=== PATIENT | female | born 1990 | race African-American/Black ===

== ENCOUNTER 2022-01-01 15:12 | Emergency (ER) | payer BC, OTHER ==
[~2022-01-01] VITALS: Ht 157.5 cm; Wt 55.0 kg
[~2022-01-01 15:12] MED LIST: DOXY1TAB3
[2022-01-01] MEDS ORDERED: SODIUM CHLORIDE 0.9% 1,000 ML IV ONE (16:30)
[2022-01-01] MEDS ORDERED: ONDANSETRON HCL 4MG/2ML INJ IV ONE (16:30)
[2022-01-01 16:45] LABS: CLARITY URINE CLOUDY (CLEAR); COLOR URINE DARK YELLOW (YELLOW); KETONES URINE 4+ (NEGATIVE); LEUKOCYTE ESTERASE URINE 2+ (NEGATIVE); NITRITE URINE NEGATIVE (NEGATIVE); OCCULT BLOOD URINE NEGATIVE (NEGATIVE); PROTEIN URINE 1+ (NEGATIVE); SPECIFIC GRAVITY URINE 1.019 (1.005-1.030)
[2022-01-01] MEDS ORDERED: CEFAZOLIN 1000MG PREMIX 50 ML IV ONE (17:45)
[2022-01-01 18:13] LABS: BASOPHILS % 0.3 % (0.0-2.0); EOSINOPHILS % 0.5 % (0.0-5.0); HEMATOCRIT. 35.2 % (36.0-48.0); HEMOGLOBIN. 12.2 g/dL (12.0-16.0); LYMPHOCYTES % 27.3 % (20.0-50.0); MEAN CORPUSCULAR HEMOGLOBIN 35.2 pg (28.0-32.0); MEAN CORPUSCULAR VOLUME 101.7 fL (81.0-99.0); MEAN PLATELET VOLUME 7.9 fl (7.4-10.4); MONOCYTES % 6.3 % (2.0-8.0); NEUTROPHILS % 65.6 % (40.0-76.0); PLATELET 136 x1000/uL (130-400); RED BLOOD CELL COUNT 3.46 mill/uL (4.2-5.4); RED CELL DISTRIBUTION WIDTH 15.1 % (11.6-14.6)
[2022-01-01 18:29] LABS: CHLORIDE 102 mEq/L (98-107)
[2022-01-01] MEDS ORDERED: KCL 20MEQ/100ML PREMIX 100 ML IV ONE (18:45)
[2022-01-01 18:52] LABS: B-HCG QUANTITATIVE 114515 mIU/mL (<3)
[2022-01-01] MEDS ORDERED: CEFAZOLIN 1000MG PREMIX 50 ML IV NR (19:15)
[2022-01-01] MEDS ORDERED: ONDANSETRON HCL 4MG/2ML INJ IV NR (19:15)
[2022-01-01 21:39] VITALS: BP 146/98
== END 2022-01-01 22:08 | disposition short-term general hospital (02) ==
LOC: ER 15:12
DX: O21.1 Hyperemesis gravidarum with metabolic disturbance (principal); O23.41 Unspecified infection of urinary tract in pregnancy, first trimester; N39.0 Urinary tract infection, site not specified; O26.891 Other specified pregnancy related conditions, first trimester; R55 Syncope and collapse; Z3A.10 10 weeks gestation of pregnancy; Z20.822 Contact with and (suspected) exposure to COVID-19
CPT/HCPCS: 36415; 76801; 76817; 80053; 81003; 83735; 84702; 85025; 86850; 86900; 86901; 87086; 87426; 93005; 96361; 96365; 96375; 99285; J0690; J2405; J3480; J7030

== ENCOUNTER 2023-03-13 10:00 | Observation (INO) | payer MEDICAID ==
[~2023-03-13] VITALS: Ht 157.5 cm; Wt 76.2 kg
[2023-03-13] MEDS ORDERED: PNV1TABL50 PO (10:25)
[2023-03-13 10:58] LABS: CLARITY URINE CLOUDY (CLEAR); COLOR URINE DARK YELLOW (YELLOW); KETONES URINE NEGATIVE (NEGATIVE); LEUKOCYTE ESTERASE URINE 3+ (NEGATIVE); NITRITE URINE NEGATIVE (NEGATIVE); OCCULT BLOOD URINE NEGATIVE (NEGATIVE); PH URINE 6.5 (4.5-8.0); PROTEIN URINE NEGATIVE (NEGATIVE); SPECIFIC GRAVITY URINE 1.022 (1.005-1.030)
[2023-03-13] MEDS ORDERED: CEFAZOLIN 2,000 MG in DEXT 5% WATER 100 ML IV SCH (12:30)
== END 2023-03-13 13:27 | disposition home or self-care (01) ==
LOC: 8 EST A/PP 10:00
PROVIDERS: ADMIT Obstetrics & Gynecology; ATTEND Obstetrics & Gynecology
DX: O26.852 Spotting complicating pregnancy, second trimester (principal); O36.8120 Decreased fetal movements, second trimester, not applicable or unspecified; O60.03 Preterm labor without delivery, third trimester; Z3A.20 20 weeks gestation of pregnancy
CPT/HCPCS: 59025; 96365; 81003; 76805; J0690; J7060; G0378 ×2; 99281; G0379

== ENCOUNTER 2023-12-05 17:15 | Emergency (ER) | payer MEDICAID ==
[~2023-12-05] VITALS: Ht 157.5 cm; Wt 81.8 kg
[~2023-12-05 17:15] MED LIST changes: -DOXY1TAB3; +PNV1TABL50 PO
[2023-12-05 17:21] VITALS: O2SAT 97
[2023-12-05 18:23] LABS: BASOPHILS % 0.9 % (0.0-2.0); EOSINOPHILS % 2.3 % (0.0-5.0); HEMATOCRIT. 43.4 % (36.0-48.0); HEMOGLOBIN. 14.3 g/dL (12.0-16.0); LYMPHOCYTES % 28.6 % (20.0-50.0); MEAN CORPUSCULAR HEMOGLOBIN 29.7 pg (28.0-32.0); MEAN CORPUSCULAR HGB CONC 32.9 g/dL (31.0-37.0); MEAN CORPUSCULAR VOLUME 90.5 fL (81.0-99.0); MEAN PLATELET VOLUME 7.7 fl (7.4-10.4); MONOCYTES % 5.5 % (2.0-8.0); NEUTROPHILS % 62.7 % (40.0-76.0); PLATELET 251 x1000/uL (130-400); RED CELL DISTRIBUTION WIDTH 16.6 % (11.6-14.6); WHITE BLOOD COUNT 6.1 x1000/uL (4.5-11.0)
[2023-12-05 18:36] LABS: INR 0.9; PARTIAL THROMBOPLASTIN TIME 28.1 sec (23.4-31.0); PROTHROMBIN TIME 10.3 sec (9.6-11.0)
[2023-12-05 18:38] LABS: CALCIUM 9.9 mg/dL (8.7-10.4); CARBON DIOXIDE 25 mEq/L (21-32); CHLORIDE 106 mEq/L (98-107); CREATININE 0.6 mg/dL (0.6-1.0); GLUCOSE 87 mg/dL (70-105); POTASSIUM 3.8 mEq/L (3.5-5.1); SODIUM 138 mEq/L (136-145); UREA NITROGEN BLOOD 9 mg/dL (9-23)
[2023-12-05 18:39] LABS: TROPONIN I HIGH SENSITIVITY < 4 ng/L (3.0-34)
[2023-12-05 18:40] LABS: ALANINE AMINOTRANSFERASE 19 IU/L (10-49); ASPARTATE AMINOTRANSFERASE 17 IU/L (<34); BILIRUBIN TOTAL 0.3 mg/dL (0.1-1.0)
[2023-12-05 20:01] LABS: HCG SCREEN NEGATIVE
[2023-12-05] MEDS ORDERED: HYDRALAZINE HCL 10MG TABLET PO ONE (20:15)
[2023-12-05] MEDS ORDERED: DIPHENHYDRAMINE 50MG/ML VIAL IM ONE (20:15)
[2023-12-05] MEDS ORDERED: KETOROLAC 30MG/ML VIAL IM ONE (20:15)
[2023-12-05] MEDS ORDERED: METOCLOPRAMIDE HCL 10MG/2ML VIAL IM ONE (20:15)
[2023-12-05] MEDS ORDERED: NIFE90TA60 MT (20:59)
[2023-12-05] MEDS ORDERED: ASPI-1154 PO (21:00)
[2023-12-05 21:53] VITALS: BP 158/116; PULSE 89; RESP 16; TEMP 98.7
== END 2023-12-05 21:58 | disposition home or self-care (01) ==
LOC: ER 17:15
DX: G43.909 Migraine, unspecified, not intractable, without status migrainosus (principal); I10 Essential (primary) hypertension; J45.909 Unspecified asthma, uncomplicated; Z90.49 Acquired absence of other specified parts of digestive tract
CPT/HCPCS: 36415; 71045; 80053; 84484; 84703; 85025; 85379; 93005; 99285